=== PATIENT | female | born 1990 | race Two or more races ===

== ENCOUNTER 2018-12-23 01:35 | Emergency (ER) | payer SELFPAY ==
[~2018-12-23] VITALS: Ht 160 cm; Wt 48.5 kg
[2018-12-23 01:35] VITALS: BP 123/66
[2018-12-23] MEDS ORDERED: AZIT250T PO (01:54)
[2018-12-23] MEDS ORDERED: METH4TAB2 PO (01:54)
--- NOTE | 2018-12-23 01:55 | PHYS DOC ---
Past Medical History Past Medical History: No Pertinent History Past Surgical History: Other Additional Past Surgical Histo: SEVERAL RIGHT ARM SX Alcohol Use: None Drug Use: None Adult General Chief Complaint Chief Complaint: SHORTNESS OF BREATH HPI HPI Patient is a 28-year-old female who presents with complaint of difficulty swallowing, tonsillar swelling and sore throat as well as a fine sandpapery rash that started a couple days ago. She states that the swelling in her tonsils makes it feel like she is having a hard time breathing. She denies any cough or actual shortness of breath however. Patient is not sure whether or not she has been running a fever.[] Review of Systems Review of Systems Constitutional: Denies fever or chills [] HENT: Positive sore throat [] Respiratory: Denies cough or shortness of breath [] Cardiovascular: No additional information not addressed in HPI [] Integument: Positive rash[] Neurologic: Denies headache, focal weakness or sensory changes [] Physical Exam Physical Exam Constitutional: Well developed, well nourished, no acute distress, non-toxic appearance. [] HENT: Normocephalic, atraumatic, throat reveals 3+ tonsillar swelling with erythema. [] Neck: Normal range of motion, no tenderness, supple, with anterior cervical lymphadenopathy. [] Cardiovascular: Regular rate and rhythm[] Lungs & Thorax: Bilateral breath sounds clear to auscultation [] Current Patient Data Vital Signs Vital Signs Date Time Temp Pulse Resp B/P (MAP) Pulse Ox O2 Delivery O2 Flow Rate FiO2 12/23/18 01:35 97.7 79 16 123/66 (85) 98 Room Air 97.7 EKG EKG [] Radiology/Procedures Radiology/Procedures [] Course & Med Decision Making Course & Med Decision Making Pertinent Labs and Imaging studies reviewed. (See chart for details) [] Dragon Disclaimer Dragon Disclaimer This electronic medical record was generated, in whole or in part, using a voice recognition dictation system. Departure Departure Impression: Primary Impression: Tonsillitis Disposition: 01 HOME, SELF-CARE Condition: STABLE Patient Instructions: Tonsillitis Scripts Methylprednisolone (MEDROL) 4 Mg Tab.ds.pk 1 PKG PO UD, #1 PKG Prov: JEN ROBERTS Jr. DO 12/23/18 Azithromycin (ZITHROMAX) 250 Mg Tablet 1 PKG PO UD, #6 TAB Prov: JEN ROBERTS Jr. DO 12/23/18 JEN ROBERTS Jr. DO Dec 23, 2018 01:55
[2018-12-23] MEDS ORDERED: DEXAMETHASONE SOD PHOS 20 MG/5 ML VIAL. PO ONE (02:00)
[2018-12-23] MEDS ORDERED: AZITHROMYCIN 250 MG TABLET. PO ONE (02:00)
== END 2018-12-23 02:03 | disposition home or self-care (01) ==
LOC: ER 01:35
DX: J03.90 Acute tonsillitis, unspecified (principal); R21 Rash and other nonspecific skin eruption
CPT/HCPCS: 99283; J1100; Q0144